=== PATIENT | female | born 1985 | race African-American/Black ===

== ENCOUNTER 2016-10-12 20:21 | Outpatient (CLI) | payer SELFPAY ==
[~2016-10-12] VITALS: Ht 152.4 cm; Wt 66.0 kg
[2016-12-21] MEDS ORDERED: PRE-TAB3 PO (21:00)
[2016-12-23] MEDS ORDERED: IBUP-1114 PO (07:44)
[2016-12-23] MEDS ORDERED: ACET50TA PO (07:44)
[2016-12-23] MEDS ORDERED: COLA100C5 PO (07:44)
== END 2016-10-12 21:45 | disposition home or self-care (01) ==
LOC: M LDO 20:21
PROVIDERS: ATTEND Student in an Organized Health Care Education/Training Program
DX: O26.893 Other specified pregnancy related conditions, third trimester (principal); R10.9 Unspecified abdominal pain; B37.3 Candidiasis of vulva and vagina; O24.419 Gestational diabetes mellitus in pregnancy, unspecified control; O62.0 Primary inadequate contractions